=== PATIENT | female | born 1975 | race Caucasian/White ===

== ENCOUNTER 2024-06-09 13:26 | Observation (INO) ==
[2024-06-09 14:07] LABS: Hematocrit 35.4 % (35-45); Mean Corpuscular Hemoglobin 29.6 pg (27-33); Mean Corpuscular Hgb Conc 33.9 g/dL (31-36); Mean Corpuscular Volume 87.2 fL (80-97); Red Blood Count 4.06 10^6/uL (3.63-4.92); Red Cell Distribution Width 16.3 % (12-17)
[2024-06-09] MEDS: Lactated Ringers 1000 ml BAG IV.FLUID IV ONE (14:24)
[2024-06-09] MEDS: Ondansetron 4 mg VIAL 2 MG/ML 2 ml VIAL IV ONE (14:25)
[2024-06-09 15:03] LABS: Albumin 4.1 g/dL (3.2-5.2); Albumin/Globulin Ratio 0.8 (1-3); Calcium 9.6 mg/dL (8.6-10.3); Creatinine, Serum 1.37 mg/dL (0.51-0.95); Potassium 4.2 mmol/L (3.5-5.0); Total Bilirubin 0.4 mg/dL (0.2-1.0); Total Protein 9.1 g/dL (6.4-8.9)
[2024-06-09 15:09] LABS: ABS Basophils 0.1 10^3/uL (0.0-0.1); ABS Eosinophils 0.4 10^3/uL (0.0-0.5); ABS Lymphocytes 1.1 10^3/uL (1.0-4.8); ABS Monocytes 0.7 10^3/uL (0.0-0.9); ABS Neutrophils 9.9 10^3/uL (1.5-7.6); ABS Nucleated RBC 0.01 10^3/ul; Eosinophil % 3.2 %; Lymphocyte % 8.7 %; Mean Platelet Volume 7.4 fL (7.5-11.2); Nucleated Red Blood Cells % 0.1 %/100WBC (0.0-0.8); Platelet Count 234 10^3/uL (150-450); White Blood Count 12.2 10^3/uL (3.8-11.8)
[2024-06-09] MEDS: Iohexol 300 (CONTRAST) 10 ML SDV IV ONE (15:42)
[2024-06-09] MEDS: fentaNYL 100 mcg/2 ml 50 MCG/ML VIAL IV SLOW PU ONE (17:42)
[2024-06-09 19:13] LABS: C Reactive Protein 48.8 mg/L (<8.01)
[2024-06-09] MEDS: oxyCODONE/Acetamin 5/325 mg TAB PO ONE (19:45)
[2024-06-09] MEDS: Lactated Ringers 1000 ml BAG 1,000 ML IV ONE (19:46)
[2024-06-09 20:04] LABS: Urine Appearance Turbid; Urine Bacteria 3+ /HPF (Absent); Urine Bilirubin Negative (Negative); Urine Blood 1+ (Negative); Urine Color Light-Yellow; Urine Glucose Negative (Negative); Urine Ketones Negative (Negative); Urine Nitrite Negative (Negative); Urine Protein 1+ (>=30 mg/dL) (Negative); Urine Red Blood Cell 3+(>10/hpf) /HPF (0-Trace); Urine Specific Gravity >1.050 (1.002-1.030); Urine Squamous Epithelial Cell Present /HPF (Absent); Urine Transitional Epithelial Present /HPF (Absent); Urine Urobilinogen Negative (Negative); Urine White Blood Cell 3+(>20/hpf) /HPF (0-Trace); Urine pH 5.5 (5.0-8.0)
[2024-06-09] MEDS: Sulfamethox/Trimethoprim DS TAB 800/160 mg PO ONE (20:42)
[2024-06-10] MEDS: oxyCODONE/Acetamin 5/325 mg TAB PO ONE (01:16)
[2024-06-10] MEDS: Lactated Ringers 1000 ml BAG 1,000 ML IV ONE (08:09)
[2024-06-10 08:12] LABS: Hematocrit 31.5 % (35-45); Hemoglobin 10.5 g/dL (11.5-14.3); Mean Corpuscular Hgb Conc 33.2 g/dL (31-36); Mean Corpuscular Volume 87.4 fL (80-97); Mean Platelet Volume 6.7 fL (7.5-11.2); Platelet Count 166 10^3/uL (150-450); Red Blood Count 3.61 10^6/uL (3.63-4.92); Red Cell Distribution Width 16.7 % (12-17); White Blood Count 5.1 10^3/uL (3.8-11.8)
[2024-06-10] MEDS: Morphine 4 MG/ML VIAL (1 ml) IV ONE (08:18)
[2024-06-10 09:11] LABS: Albumin/Globulin Ratio 0.8 (1-3); Calcium 7.6 mg/dL (8.6-10.3); Creatinine, Serum 1.13 mg/dL (0.51-0.95); Globulin 3.8 g/dL (2-4); Potassium 3.3 mmol/L (3.5-5.0); Total Bilirubin 0.3 mg/dL (0.2-1.0); Total Protein 6.8 g/dL (6.4-8.9); eGFR CKD-EPI 59.3 (>60)
[2024-06-10] MEDS: Ciprofloxacin 400mg IVPREMIX 400 MG/200 ML BAG IVPB ONE (09:23)
[2024-06-10] MEDS ORDERED: NS 0.9% 1000 ml BAG 1,000 ML IV SCH (09:45)
[2024-06-10] MEDS: Vancomycin 1,500 MG in NS 0.9% 250 ml 250 ML IVPB ONE (09:50)
[2024-06-10] MEDS ORDERED: Albuterol HFA INHALER 8 gm MDI INH PRN (10:24)
[2024-06-10] MEDS: KCL 20 MEQ/100 ML IVPREMIX 20 MEQ/100 ML BAG IV SCH (11:01)
[2024-06-10] MEDS: Zinc Oxide 40% (TOPICAL) TUBE TOPICAL SCH (12:47)
[2024-06-10] MEDS: Potassium Chlor 20 meq TAB.ER PO SCH (21:45)
[2024-06-11] MEDS: Psyllium PAK PO SCH (08:26)
[2024-06-11] MEDS: Morphine 2 MG/ML SYRINGE IV ONE (10:28)
[2024-06-11] MEDS: Potassium Chlor 20 meq TAB.ER PO ONE (10:30)
[2024-06-11] MEDS: oxyCODONE SR 10 mg TAB PO ONE (10:30)
[2024-06-11] MEDS: Ondansetron 4 mg VIAL 2 MG/ML 2 ml VIAL IV PRN (15:34)
[2024-06-11] MEDS: oxyCODONE SR 10 mg TAB PO SCH (20:10)
[2024-06-12 13:39] VITALS: BP 110/78
[2024-06-12] MEDS: fentaNYL PATCH 12 MCG/HR 1 PATCH TRANSDERM SCH (14:26)
[2024-06-12] MEDS ORDERED: fentaNYL Patch Check Q Shift NOTE FOLLOW UP SCH (19:00)
== END 2024-06-12 16:00 | disposition home or self-care (01) ==
LOC: ED 13:26 → EDHOLD 13:26 → SUATTDRO 06-10 09:58 → MEDTELE 06-10 10:51
PROVIDERS: ADMIT Hospitalist; ATTEND Student in an Organized Health Care Education/Training Program